=== PATIENT | male | born 1975 | race Caucasian/White ===

== ENCOUNTER 2019-10-08 08:27 | Day surgery (SDC) | payer OTHER ==
[2019-10-07 12:41] VITALS: BMI 24.3
[2019-10-08] MEDS ORDERED: Lidocaine 2% Jelly 5 ML TUBE ONE (09:14)
[2019-10-08] MEDS ORDERED: Bupivacaine 0.25% HCL 30 ML VIAL ONE (09:14)
[2019-10-08] MEDS ORDERED: Fentanyl 100 MCG/2 ML VIAL ONE (09:45)
[2019-10-08] MEDS ORDERED: Ondansetron PF 4 MG/2 ML Vial ONE (10:03)
[2019-10-08] MEDS ORDERED: PROPOFOL 200 MG/20 ML VIAL ONE (10:03)
[2019-10-08] MEDS ORDERED: Lidocaine 1% PF 5 ML VIAL ONE (10:03)
[2019-10-08] MEDS ORDERED: Ketorolac Tromethamine 30 MG/ML VIAL ONE (10:03)
--- NOTE | 2019-10-08 11:21 | OP ---
DATE OF PROCEDURE: 10/08/2019 PREOPERATIVE DIAGNOSIS: Transsphincteric [id number]. POSTOPERATIVE DIAGNOSIS: Transsphincteric [id number]. PROCEDURE PERFORMED: Exam under anesthesia, fistulotomy with seton placement. ANESTHESIA: General. ESTIMATED BLOOD LOSS: Minimal. COMPLICATION: None. 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 DESCRIPTION OF PROCEDURE: The patient was taken to the operating room and laid supine on the operating room table. After general anesthetic was obtained, the perineum was shaved, prepped, and draped in a sterile fashion. Anal exam reveals no anal canal mass. There was internal opening at the posterior midline. External opening was lateral and an inch and a half away. A probe was used to connect the 2 openings. The subcutaneous tissues of the buttocks were opened, exposing underlying fistula, where the granulation was cauterized. The external opening was taken right up to the external sphincter muscle and then stopped. The internal opening had been dilated by the probe slightly. The mucosa was opened over the internal opening. A cutting seton was passed using the probe of heavy silk. It was tied in a knot and left in place. Meticulous hemostasis was obtained. The anal canal was packed with Gelfoam and lidocaine jelly. The patient was sent to Recovery in stable condition. All instrument counts, needle counts, and lap counts were correct. The patient will likely need staged fistulotomy, fistulectomy. Job ID: [id number]
== END 2019-10-08 13:34 | disposition home or self-care (01) ==
LOC: SDC 08:27
PROVIDERS: ATTEND Surgery
PROC: 0DBQ0ZZ Excision of Anus, Open Approach (ICD-10-PCS; principal; 2019-10-08)
DX: K60.3 Anal fistula (principal); Z91.018 Allergy to other foods
CPT/HCPCS: J0690; J1885; J2001; J2405; J2704; J3010; S0020

== ENCOUNTER 2019-12-06 10:30 | Day surgery (SDC) | payer OTHER ==
[~2019-12-06 10:30] MED LIST: Dexamethasone 20 MG/5 ML VIAL ONE; Ketorolac Tromethamine 30 MG/ML VIAL ONE; Lidocaine 1% PF 5 ML VIAL ONE; Ondansetron PF 4 MG/2 ML Vial ONE; PROPOFOL 200 MG/20 ML VIAL ONE
[2019-12-06] MEDS ORDERED: ceFOXitin 2 GM/50 ML Duplex BAG ONE (10:52)
[2019-12-06] MEDS ORDERED: Thrombin 5000 UNITS/5 ML VIAL ONE (11:12)
[2019-12-06] MEDS ORDERED: Bupivacaine 0.25% HCL 30 ML VIAL ONE (11:12)
[2019-12-06] MEDS ORDERED: Lidocaine 1% w/Epinephrine 1:100K 20 ML VIAL ONE (11:12)
[2019-12-06] MEDS ORDERED: Lidocaine 2% Jelly 5 ML TUBE ONE (11:13)
[2019-12-06] MEDS ORDERED: Fentanyl 100 MCG/2 ML VIAL ONE ×2 (11:43→13:12)
[2019-12-06] MEDS ORDERED: HYDROcodone/Acetaminophen 5/325 mg Tablet ONE (13:38)
--- NOTE | 2019-12-06 19:23 | OP ---
DATE OF PROCEDURE: 12/06/2019 PREOPERATIVE DIAGNOSIS: Fistula in ANO, nonhealing with previous seton placement. PROCEDURES PERFORMED: Staged fistulotomy, replacement of seton with additional posterior tunnel seton placed. ANESTHESIA: General. ESTIMATED BLOOD LOSS: Minimal. COMPLICATIONS: None. SPECIMEN: Skin and chronic granulation tissue sent to Pathology to rule out obvious granulomatous change consistent with inflammatory bowel disease. DESCRIPTION OF PROCEDURE: The patient was taken to the operating room and laid supine on the operating room table. After general anesthetic was obtained, he was placed in lithotomy position. His perineum was prepped and draped in a sterile fashion. In the area of seton, the anterior tunnel was re-tunneled using the probe. It is still just behind the sphincter muscles, so it was left in place. The suture was tightened and replaced. The patient has a large cavity just underneath the outside entrance and this appears to tunnel to a small hole on the more lateral buttocks. Further examination of this deeper cavity reveals to tunnel to the rectum and more proximally, so a second seton was placed. The wounds were irrigated. The wounds with granulation were biopsied. The wounds were packed. Sterile dressings were placed. Local anesthetic was applied. The patient was sent to Recovery in stable condition. All instrument counts, needle counts, and lap counts were correct. Job ID: [id number]
== END 2019-12-06 15:05 | disposition home or self-care (01) ==
LOC: SDC 10:30
PROVIDERS: ATTEND Surgery
PROC: 0DQQXZZ Repair Anus, External Approach (ICD-10-PCS; principal; 2019-12-06)
DX: K60.3 Anal fistula (principal); Z91.018 Allergy to other foods
CPT/HCPCS: 88304; J0694; J1100; J1885; J2001; J2405; J2704; J3010; S0020